=== PATIENT | female | born 1995 | race Caucasian/White ===

== ENCOUNTER 2018-09-01 09:58 | Emergency (ER) | payer MEDICAID ==
[2018-09-01] MEDS ORDERED: Aspirin 81 MG Tab.Chew PO ONE (10:08)
[2018-09-01 10:45] VITALS: BP 103/70
[2018-09-01 10:49] LABS: CHLORIDE,CL 105 mEq/L (98-106); SODIUM,NA 141 mEq/L (136-145)
--- NOTE | 2018-09-01 10:53 | EDM.PDOC ---
ED HPI GENERAL MEDICAL PROBLEM - General Chief Complaint: Chest Pain Stated Complaint: CHEST PAIN Time Seen by Provider: 09/01/18 10:30 Source of Information: Reports: Patient History Limitations: Reports: No Limitations - History of Present Illness INITIAL COMMENTS - FREE TEXT/NARRATIVE: Patient presents to ER with complaints of bilateral anterior chest pain. She states she felt discomfort across her chest at work this am and when driving to her parents in [place], the pain got worse. She felt short of breath and had numbness in her arms. [place] sweaty when it happened. She relates she had issues like this when she was young but all work up done at that time was negative. She has been dealing with upper respiratory symptoms as of late. Has sinus congestion and a sore throat. Has been coughing. Nonproductive. No fevers. States several other members of her family have been ill. Does work at [email or web address] and routinely lifts on a normal basis. Does not recall any injury or strain. Onset: Today, Sudden Duration: Hour(s): Location: Reports: Chest Quality: Reports: Ache, Sharp Severity: Severe Improves with: Reports: None Context: Reports: Sick Contact Associated Symptoms: Reports: Chest Pain, Cough, Diaphoresis, Shortness of Breath. 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: Musculoskeletal History: Reports: Fracture Psychiatric History: Reports: Anxiety, Depression, PTSD - Past Surgical History HEENT Surgical History: Reports: Myringotomy w Tube(s), Tonsillectomy, Other ( See Below) Other HEENT Surgeries/Procedures: "EARDRUM REPAIR" Musculoskeletal Surgical History: Reports: None Social & Family History - Family History Family Medical History: Noncontributory - Tobacco Use Smoking Status *Q: Current Every Day Smoker Years of Tobacco use: 7 Packs/Tins Daily: 0.5 - Caffeine Use Caffeine Use: Reports: Coffee - Recreational Drug Use Recreational Drug Use: No ED ROS GENERAL - Review of Systems Review Of Systems: See Below Constitutional: Reports: Chills, Malaise, Weakness, Fatigue. Denies: Fever HEENT: Reports: Rhinitis, Sinus Problem, Throat Pain. Denies: Ear Pain Respiratory: Reports: Shortness of Breath, Pleuritic Chest Pain, Cough Cardiovascular: Reports: Chest Pain. Denies: Edema, Lightheadedness Endocrine: Reports: Fatigue GI/Abdominal: Denies: Abdominal Pain, Nausea, Vomiting : Reports: No Symptoms Musculoskeletal: Reports: No Symptoms Skin: Reports: No Symptoms Neurological: Reports: No Symptoms ED EXAM, GENERAL - Physical Exam Exam: See Below Exam Limited By: No Limitations General Appearance: Alert, WD/WN, No Apparent Distress Ears: Normal External Exam, Normal TMs Nose: Normal Inspection, Nasal Drainage (mucopurulent rhinorrhea noted), Other ( maxillary sinus tenderness) Throat/Mouth: Normal Inspection, Normal Oropharynx Head: Normocephalic Neck: Normal Inspection, Supple, Non-Tender Respiratory/Chest: No Respiratory Distress, Lungs Clear, Other (has discomfort with palpation of her chest wall) Cardiovascular: Regular Rate, Rhythm GI/Abdominal: Normal Bowel Sounds, Soft, Non-Tender Extremities: Normal Inspection, Normal Capillary Refill Neurological: Alert, Oriented Skin Exam: Warm, Dry EKG INTERPRETATION Rhythm: Other (sinus tachycardia) Course - Vital Signs Last Recorded V/S: Last Vital Signs Temp 99.3 F 09/01/18 10:30 Pulse 99 09/01/18 10:44 Resp 16 09/01/18 10:44 BP 103/70 09/01/18 10:44 Pulse Ox 100 09/01/18 10:44 - Orders/Labs/Meds Orders: Active Orders 24 hr Category Date Time Status Chest 2V [CR] Routine Exams 09/01/18 Taken Labs: Laboratory Tests 09/01/18 09/01/18 09/01/18 Range/Units 10:16 10:16 10:16 WBC 7.2 (5.0-10.0) 10^3/uL RBC 4.45 (4.00-5.50) 10^6/uL Hgb 13.8 (12.0-16.0) g/dL Hct 40.4 (37.0-47.0) % MCV 90.8 (82.0-94.0) fL MCH 31.0 (27.0-32.0) pg MCHC 34.2 (33.0-38.0) g/dL RDW Coeff of Capo 12.7 (11.0-15.0) % Plt Count 197 (150-400) 10^3/uL Neut % (Auto) 81.7 (35-85) % Lymph % (Auto) 8.1 L (10-55) % Randolph % (Auto) 9.7 (0-16) % Eos % (Auto) 0.4 (0-5) % Baso % (Auto) 0.1 (0-3) % Neut # (Auto) 5.86 (1.80-7.00) 10^3/uL Lymph # (Auto) 0.58 L (1.00-4.80) 10^3/uL Randolph # (Auto) 0.70 (0.00-0.80) 10^3/uL Eos # (Auto) 0.03 (0.00-0.45) 10^3/uL Baso # (Auto) 0.01 10^3/uL PT 10.8 (9.7-12.3) SEC INR 1.05 (0.92-1.18) Sodium 141 (136-145) mEq/L Potassium 3.6 (3.5-5.0) mEq/L Chloride 105 (98-106) mEq/L Carbon Dioxide 23 (21-32) mmol/L BUN 11 (7-18) mg/dL Creatinine 0.6 (0.6-1.0) mg/dL Est Cr Clr Drug Dosing 123.77 mL/min Estimated GFR (MDRD) > 60 (>=60) mL/min Glucose 82 (75-99) mg/dL Calcium 9.0 (8.4-10.1) mg/dL Lactate Dehydrogenase 145 (100-190) U/L Creatine Kinase 64 (21-215) U/L Troponin I < 0.017 (0.00-0.06) ng/mL Meds: Medications Discontinued Medications Generic Name Dose Route Start Last Admin Trade Name Freq PRN Reason Stop Dose Admin Aspirin 324 mg 09/01/18 10:08 09/01/18 10:11 Aspirin PO 09/01/18 10:09 324 mg ONETIME ONE Administration - Re-Assessments/Exams Free Text/Narrative Re-Assessment/Exam: 09/01/18 EKG, labs all normal. Patient and parents advised. Departure - Departure Time of Disposition: 10:55 Disposition: Home, Self-Care 01 Condition: Good Clinical Impression: Atypical chest pain, Sinusitis Prescriptions: Cefuroxime [Ceftin] 250 mg PO BID #20 tab predniSONE [Prednisone] 20 mg PO DAILY #10 tablet Forms: ED Department Discharge Additional Instructions: 1. Push fluids 2. Tylenol for discomfort 3. Ceftin 250 mg twice a day for 10 days 4. Prednisone 20 mg- 2 tabs daily for 5 days 5. Follow up if persisting concerns. - My Orders Last 24 Hours: My Active Orders 09/01/18 Chest 2V [CR] Routine - Assessment/Plan Last 24 Hours: My Active Orders 09/01/18 Chest 2V [CR] Routine
== END 2018-09-01 11:10 | disposition home or self-care (01) ==
LOC: CC.ED 09:58
DX: R07.89 Other chest pain (principal); J32.9 Chronic sinusitis, unspecified; F17.210 Nicotine dependence, cigarettes, uncomplicated; F32.9 Major depressive disorder, single episode, unspecified; F43.10 Post-traumatic stress disorder, unspecified; Z79.899 Other long term (current) drug therapy; Z88.0 Allergy status to penicillin
CPT/HCPCS: 36415; 71046; 80048; 82550; 83615; 84484; 85025; 85610; 93005; 99285-25; A9270-GY

== ENCOUNTER 2020-01-22 17:22 | Emergency (ER) | payer MEDICAID ==
--- NOTE | 2020-01-22 17:47 | EDM.PDOC ---
ED HPI GENERAL MEDICAL PROBLEM - General Chief Complaint: General Stated Complaint: Shortness of Breath Time Seen by Provider: 01/22/20 17:43 Source of Information: Reports: Patient History Limitations: Reports: No Limitations - History of Present Illness INITIAL COMMENTS - FREE TEXT/NARRATIVE: This patient is a 24 year old female that presents to the ER via EMS. Patient reports that about 3 days she started having right sided chest pain that radiates into her right shoulder and right side of her neck. Patient reports that she is short of breath with it. She reports that the pain is constant. She reports the pain is sharp. She reports to me that her pain is a 25 out of 10. During exam, she does smile when mask is down, laughs during exam, and talking appropriate. The patient reports her only history is cervical cancer that she said is now gone after being scraped. She reports this week they will repeat her PAP. Patient reports that this pain in her chest she has had several times before and has been several times in [place] for this same complaint. She reports that no one has been able to find out what the pain cause is. She reports she has MRI of her back and her heart checked. She reports that they said maybe she needs to make sure its not a heart valve problem per patient. Patent reports though, that today this afternoon her pain was much worse and her shortness of breath was much worse. She reports that she also became lightheaded. She reports that about 1 month ago having her Mirena removed and started on control pills with abnormal PAP. Onset Date: 01/19/20 Duration: Day(s): (3) Location: Reports: Chest Severity: Mild Improves with: Reports: Rest Worsens with: Reports: Movement Associated Symptoms: Reports: Chest Pain, Shortness of Breath. Denies: Confusion, Cough, cough w sputum, Diaphoresis, Fever/Chills, Headaches, Loss of Appetite, Malaise, Nausea/Vomiting, Rash, Seizure, Syncope, Weakness chest Pain Score (Numeric/FACES): 10 - Related Data Allergies Allergy/AdvReac Type Severity Reaction Status Date / Time penicillin Allergy Cannot Verified 01/22/20 17:31 Remember Home Meds: Home Meds Pregabalin [Lyrica] 75 mg PO TID 01/22/20 [History] Past Medical History - Past Health History Medical/Surgical History: Denies Medical/Surgical History Cardiovascular History: Reports: Other (See Below) Other Cardiovascular History: per pt has "heart problems since age 12" but unsure what exactly. 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 GRAINING OPERATOR History: pt states potential cervical ca Musculoskeletal History: Reports: Back Pain, Chronic Oncologic (Cancer) History: Reports: Cervix Other Oncologic History: potentialy per pt - Past Surgical History HEENT Surgical History: Reports: Myringotomy w Tube(s), Tonsillectomy Cardiovascular Surgical History: Reports: None Social & Family History - Family History Family Medical History: Noncontributory - Tobacco Use Smoking Status *Q: Current Every Day Smoker Years of Tobacco use: 10 Packs/Tins Daily: 0.5 - Caffeine Use Caffeine Use: Reports: None - Recreational Drug Use Recreational Drug Use: No - Living Situation & Occupation Living situation: Reports: Occupation: Employed ED ROS GENERAL - Review of Systems Review Of Systems: See Below Constitutional: Reports: No Symptoms HEENT: Reports: No Symptoms Respiratory: Reports: Shortness of Breath. Denies: Wheezing, Cough, Sputum, Hemoptysis Cardiovascular: Reports: Chest Pain, Lightheadedness. Denies: Dyspnea on Exertion, Edema, Palpitations, PND, Syncope Endocrine: Reports: No Symptoms GI/Abdominal: Reports: No Symptoms. Denies: Abdominal Pain, Constipation, Nausea, Vomiting : Reports: No Symptoms Musculoskeletal: Reports: Neck Pain (right sided), Shoulder Pain (right) Skin: Reports: No Symptoms Neurological: Reports: No Symptoms Psychiatric: Reports: No Symptoms Hematologic/Lymphatic: Reports: No Symptoms Immunologic: Reports: No Symptoms ED EXAM, GENERAL - Physical Exam Exam: See Below Exam Limited By: No Limitations General Appearance: Alert, WD/WN, No Apparent Distress Eye Exam: Bilateral Eye: Normal Inspection, PERRL Ears: Normal External Exam, Normal Canal, Hearing Grossly Normal, Normal TMs Ear Exam: Bilateral Ear: Auricle Normal, Canal Normal, TM normal Nose: Normal Inspection, Normal Mucosa, No Blood Throat/Mouth: Normal Inspection, Normal Lips, Normal Teeth, Normal Gums, Normal Oropharynx, Normal Voice, No Airway Compromise Head: Atraumatic, Normocephalic Neck: Normal Inspection, Supple, Non-Tender, Full Range of Motion Respiratory/Chest: No Respiratory Distress, Lungs Clear, Normal Breath Sounds, No Accessory Muscle Use, Other (Patient does occasionally during talking will stop to take a big deep breath, then will have an infrequent dry cough.) Cardiovascular: Normal Peripheral Pulses, Regular Rate, Rhythm, No Edema, No Gallop, No JVD, No Murmur, No Rub Peripheral Pulses: 2+: Radial (L), Radial (R), Posterior Tibial (L), Posterior Tibial (R) GI/Abdominal: Soft, Non-Tender Back Exam: Normal Inspection, Full Range of Motion Extremities: Normal Inspection, Normal Range of Motion, Non-Tender, No Pedal Edema, Normal Capillary Refill Neurological: Alert, Oriented, Normal Cognition Psychiatric: Normal Affect, Normal Mood Skin Exam: Warm, Dry, Intact, Normal Color, No Rash Lymphatic: No Adenopathy EKG INTERPRETATION EKG Date: 01/22/20 Time: 17:29 Rhythm: NSR Rate (Beats/Min): 88 ST-T: Normal Comparison: NA - No Prior EKG Course - Vital Signs Last Recorded V/S: Last Vital Signs Temp 97.8 F 01/22/20 17:32 Pulse 79 01/22/20 19:05 Resp 18 01/22/20 19:05 BP 117/87 01/22/20 19:05 Pulse Ox 98 01/22/20 19:05 - Orders/Labs/Meds Orders: Active Orders 24 hr Category Date Time Status Ang Chest [CT] Stat Exams 01/22/20 18:17 Taken Chest 2V [CR] Stat Exams 01/22/20 17:22 Taken Enoxaparin [Lovenox] Med 01/22/20 19:45 Active 60 mg SUBCUT Q12H EKG 12 Lead [EK] Stat Ther 01/22/20 17:22 Ordered Medication Orders Enoxaparin Sodium (Lovenox) 60 mg SUBCUT Q12H [facility] Last Admin: 01/22/20 19:39 Dose: 60 mg Documented by: WENDI Labs: Laboratory Tests 01/22/20 01/22/20 01/22/20 Range/Units 05:40 05:40 05:40 WBC 9.6 (5.0-10.0) 10^3/uL RBC 4.25 (4.00-5.50) 10^6/uL Hgb 13.1 (12.0-16.0) g/dL Hct 38.9 (37.0-47.0) % MCV 91.5 (82.0-94.0) fL MCH 30.8 (27.0-32.0) pg MCHC 33.7 (33.0-38.0) g/dL RDW Coeff of Capo 12.7 (11.0-15.0) % Plt Count 238 (150-400) 10^3/uL Neut % (Auto) 67.5 (35-85) % Lymph % (Auto) 23.6 (10-55) % Sanders % (Auto) 8.4 (0-16) % Eos % (Auto) 0.3 (0-5) % Baso % (Auto) 0.2 (0-3) % Neut # (Auto) 6.47 (1.80-7.00) 10^3/uL Lymph # (Auto) 2.26 (1.00-4.80) 10^3/uL Sanders # (Auto) 0.80 (0.00-0.80) 10^3/uL Eos # (Auto) 0.03 (0.00-0.45) 10^3/uL Baso # (Auto) 0.02 10^3/uL D-Dimer, Quantitative (0.00-0.50) Sodium 142 (136-145) mEq/L Potassium 3.6 (3.5-5.0) mEq/L Chloride 105 (98-106) mEq/L Carbon Dioxide 27 (21-32) mmol/L BUN 10 (7-18) mg/dL Creatinine 0.8 (0.6-1.0) mg/dL Est Cr Clr Drug Dosing 92.02 mL/min Estimated GFR (MDRD) > 60 (>=60) mL/min Glucose 97 (75-99) mg/dL Calcium 8.6 (8.4-10.1) mg/dL Magnesium 2.0 (1.8-2.4) mg/dL Total Bilirubin 0.5 (0.0-1.0) mg/dL AST 11 L (15-37) U/L ALT 20 (12-78) U/L Alkaline Phosphatase 66 (46-116) U/L Lactate Dehydrogenase (100-190) U/L Creatine Kinase (21-215) U/L Troponin I < 0.017 (0.00-0.06) ng/mL C-Reactive Protein (0.2-0.8) mg/dL Total Protein 6.9 (6.4-8.2) g/dL Albumin 3.4 (3.4-5.0) g/dL HCG, Qual Negative 01/22/20 01/22/20 Range/Units 05:40 05:40 WBC (5.0-10.0) 10^3/uL RBC (4.00-5.50) 10^6/uL Hgb (12.0-16.0) g/dL Hct (37.0-47.0) % MCV (82.0-94.0) fL MCH (27.0-32.0) pg MCHC (33.0-38.0) g/dL RDW Coeff of Capo (11.0-15.0) % Plt Count (150-400) 10^3/uL Neut % (Auto) (35-85) % Lymph % (Auto) (10-55) % Sanders % (Auto) (0-16) % Eos % (Auto) (0-5) % Baso % (Auto) (0-3) % Neut # (Auto) (1.80-7.00) 10^3/uL Lymph # (Auto) (1.00-4.80) 10^3/uL Sanders # (Auto) (0.00-0.80) 10^3/uL Eos # (Auto) (0.00-0.45) 10^3/uL Baso # (Auto) 10^3/uL D-Dimer, Quantitative 1.40 H (0.00-0.50) Sodium (136-145) mEq/L Potassium (3.5-5.0) mEq/L Chloride (98-106) mEq/L Carbon Dioxide (21-32) mmol/L BUN (7-18) mg/dL Creatinine (0.6-1.0) mg/dL Est Cr Clr Drug Dosing mL/min Estimated GFR (MDRD) (>=60) mL/min Glucose (75-99) mg/dL Calcium (8.4-10.1) mg/dL Magnesium (1.8-2.4) mg/dL Total Bilirubin (0.0-1.0) mg/dL AST (15-37) U/L ALT (12-78) U/L Alkaline Phosphatase (46-116) U/L Lactate Dehydrogenase 131 (100-190) U/L Creatine Kinase 50 (21-215) U/L Troponin I (0.00-0.06) ng/mL C-Reactive Protein 4.4 H (0.2-0.8) mg/dL Total Protein (6.4-8.2) g/dL Albumin (3.4-5.0) g/dL HCG, Qual Meds: Medications Generic Name Dose Route Start Last Admin Trade Name Freq PRN Reason Stop Dose Admin Enoxaparin Sodium 60 mg 01/22/20 19:45 01/22/20 19:39 Lovenox SUBCUT 60 mg Q12H PATRICIA Administration Discontinued Medications Generic Name Dose Route Start Last Admin Trade Name Freq PRN Reason Stop Dose Admin Sodium Chloride 1,000 mls @ 1,000 mls/hr 01/22/20 18:19 01/22/20 18:54 Normal Saline IV 01/22/20 19:18 1,000 mls/hr .BOLUS ONE Administration Iopamidol 100 ml 01/22/20 18:10 01/22/20 18:24 Isovue-370 (76%) IVPUSH 01/22/20 18:11 100 ml ONETIME ONE Administration Morphine Sulfate 4 mg 01/22/20 18:46 01/22/20 18:54 Morphine IVPUSH 01/22/20 18:47 4 mg ONETIME ONE Administration Ondansetron HCl 4 mg 01/22/20 18:46 01/22/20 18:54 Zofran IVPUSH 01/22/20 18:47 4 mg NOW STA Administration - Radiology Interpretation Free Text/Narrative:: CXR: no acute findings CTA Chest: RLL PE with infarct CT Results Date: 01/22/20 CT Results Time: 06:48 - Re-Assessments/Exams Free Text/Narrative Re-Assessment/Exam: 01/22/20 18:18 Due to patient complaint of chest pain and shortness of breath. Also, her hx of reported cervical cancer, a d-dimer was done. This is 3 times normal limit, I will angio her chest even with 0 score low risk of wells criteria. Discussed this test and risk vs benefits with the patient and she has agreed to the test. HCG lab reports is negative. 01/22/20 19:15 Called and spoke to Dr. Cha at [facility]. He reports to give patietn lovenox 1mg/kg and transfer. He has accepted. Will COVID test patient prior to leaving due to her PE and smoker. Departure - Departure Time of Disposition: 19:56 Disposition: DC/Tfer to Acute Hospital 02 Condition: Serious Clinical Impression: Pulmonary embolism Qualifiers: Pulmonary embolism type: unspecified Chronicity: acute Acute cor pulmonale presence: unspecified Qualified Code(s): I26.99 - Other pulmonary embolism without acute cor pulmonale - Discharge Information *PRESCRIPTION DRUG MONITORING PROGRAM REVIEWED*: Not Applicable *COPY OF PRESCRIPTION DRUG MONITORING REPORT IN PATIENT LORI: Not Applicable Referrals: Jackson Urban MD [Primary Care Provider] - Forms: ED Department Discharge Sepsis Event Note (ED) - Evaluation Sepsis Screening Result: No Definite Risk - Focused Exam Vital Signs: Vital Signs Temp Pulse Resp BP Pulse Ox 01/22/20 19:05 79 18 117/87 98 01/22/20 17:55 85 115/79 01/22/20 17:32 97.8 F 88 18 113/79 99 - My Orders Last 24 Hours: My Active Orders 01/22/20 17:22 Chest 2V [CR] Stat EKG 12 Lead [EK] Stat 01/22/20 18:17 Ang Chest [CT] Stat 01/22/20 19:45 Enoxaparin [Lovenox] 60 mg SUBCUT Q12H - Assessment/Plan Last 24 Hours: My Active Orders 01/22/20 17:22 Chest 2V [CR] Stat EKG 12 Lead [EK] Stat 01/22/20 18:17 Ang Chest [CT] Stat 01/22/20 19:45 Enoxaparin [Lovenox] 60 mg SUBCUT Q12H Plan: PLEASE SEE RN NOTE FOR PFSH The patient is being transferred to to [facility]. The risk vs benefits explained to patient and she has accepted. The risk of transfer are mvc, , cardiac arrest, intubation, worsening of condition. The risk of staying in [place] is no venous dopplar this weekend, no risk management consultant, worsening of condition, . The benefits of transfer are higher level of care, dopplar capability, risk management consultant, further clotting disorder testing if needed. The benefits of staying in [place] is close to home.
[2020-01-22 18:09] LABS: CHLORIDE,CL 105 mEq/L (98-106); SODIUM,NA 142 mEq/L (136-145)
[2020-01-22] MEDS ORDERED: Iopamidol 755 Mg/ML 100 ML Bottle IVPUSH ONE (18:10)
[2020-01-22] MEDS ORDERED: Sodium Chloride 0.9% 1,000 ML IV ONE (18:19)
[2020-01-22] MEDS ORDERED: Ondansetron 4 MG/2 ML SDV IVPUSH STA (18:46)
[2020-01-22] MEDS ORDERED: Morphine 4 MG/ML VIAL IVPUSH ONE (18:46)
[2020-01-22] MEDS ORDERED: Enoxaparin 60 MG/0.6 ML Syringe SUBCUT SCH (19:45)
== END 2020-01-22 20:19 ==
LOC: CC.ED 17:22 → MERGE 17:22 → CC.ED 20:19
DX: I26.99 Other pulmonary embolism without acute cor pulmonale (principal); F17.210 Nicotine dependence, cigarettes, uncomplicated; Z88.0 Allergy status to penicillin
CPT/HCPCS: 36415; 71046; 71275; 80053; 82550; 83615; 83735; 84484; 84703; 85025; 85379; 86140; 93005; 96361; 96374; 96375; 99285-25; J1650; J2270; J2405; J7030; Q9967; U0002